=== PATIENT | male | born 1980 | race Caucasian/White ===

== ENCOUNTER 2021-06-23 07:38 | Outpatient (CLI) | payer BC, SELFPAY ==
--- NOTE | ~2021-06-23 | MR_ITS ---
EXAMINATION: MR knee RT wo con DATE: 06/23/2021 08:46 INDICATION: Surgical planning post injury TECHNIQUE: Magnetic resonance imaging (MRI) of the right knee was performed without intravenous contr ast. Sequences included coronal PD-weighted FSE, coronal PD-weighted FS FSE, sagittal T2-weighted FS E, sagittal PD-weighted FS FSE and axial PD weighted fat saturated FSE. COMPARISON: None. FINDINGS: Medial compartment: Medial meniscus is normal. Articular cartilage is normal. Lateral compartment: Partial thickness radial tear involving the inner half of the medial meniscal body. Articular cartila ge is normal. Patellofemoral compartment: Shallow chondral fissuring at the central aspect of the patellar apical ridge. Trochlear cartilage is normal. Ligaments and tendons: Anterior and posterior cruciate ligaments are normal. The fibular collateral ligament complex is norm al. Mild thickening of the proximal medial collateral ligament without significant immediately surrou nding edema likely scarring related to chronic sprain. Complete tear at the proximal aspect of the pa tellar tendon with 1.3 cm proximal retraction of the patella resulting in patella ting. There is a la rge heterotopic ossicle at the distal tear margin and moderate-sized enthesophyte at the proximal tea r margin. 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 Mild to mode rate tendinopathy along the medial side of the more distal patellar tendon. The visualized medial and lateral hamstring tendons as well as the iliotibial band are normal. Fluid: Minimal joint effusion at the suprapatellar pouch. There is prominent soft tissue edema in the immedi ate centimeters the patellar tendon tear. No loose osteochondral bodies identified. Osseous/other: Normal marrow signal. No fracture or pathologic marrow replacing process. IMPRESSION: 1. Patella ting with complete tear of proximal patellar tendon. 2. Partial thickness radial tear at the body of the lateral meniscus. 3. Moderate grade patellar chondromalacia with small region of shallow chondral fissuring at the gallo llar apical ridge. Reviewed, dictated and finalized at location A. IMPRESSION: 1. Patella ting with complete tear of proximal patellar tendon. 2. Partial thickness radial tear at the body of the lateral meniscus. 3. Moderate grade patellar chondromalacia with small region of shallow chondral fissuring at the patellar apical ridge.
== END 2021-06-23 07:39 | disposition home or self-care (01) ==
PROVIDERS: PCP Internal Medicine; Visit Provider Orthopaedic Surgery
DX: S83.006A Unspecified dislocation of unspecified patella, initial encounter (principal); S86.819A Strain of other muscle(s) and tendon(s) at lower leg level, unspecified leg, initial encounter; X58.XXXA Exposure to other specified factors, initial encounter
CPT/HCPCS: 73721

== ENCOUNTER 2021-06-24 01:01 | Day surgery (SDC) | payer BC, SELFPAY ==
[2021-06-21 14:37] VITALS: BMI 34.0
[2021-06-24] VITALS (9 sets, daily range): BP systolic 121–153; BP diastolic 57–79; PULSE 62–85; RESP 12–20; TEMP 36.8–36.9; O2SAT 94–100; BMI 35.2
--- NOTE | 2021-06-24 07:16 | WPDHPUPDATE1 ---
History and Physical Update Update Date/Time: 06/24/21 07:16 History and Physical has been reviewed, including an updated exam of the patient. There are NO changes in the patient's condition. Risks, benefits, and alternatives have been discussed and questions answered. Patient agrees to proceed with procedure.
--- NOTE | 2021-06-24 09:20 | WPDANESEPPF ---
Anes - Initial Pre Proc Eval Procedure: Operation Date: 06/24/21 12:30 Proposed Procedures p Right Patellar Tendon Reconstruction - Edgardo Crawford MD Date/Time: 06/24/21 09:20 Surgeon: Edgardo Crawford MD Pre Op Diagnosis: Rt Patellar Rupture Patient Data Age: 40 Gender: M Height: 1.75 m Weight: 108 kg Allergies Allergy/AdvReac Type Severity Reaction Status Date / Time No Known Allergies Allergy Verified 06/24/21 09:10 Home Medications Medication Instructions Recorded Confirmed Type hydrocodone 5 mg-acetaminophen 325 1 tablet PO Q6H PRN 06/20/21 06/24/21 History mg tablet meloxicam 15 mg tablet 15 mg PO DAILY 06/20/21 06/24/21 History oxycodone-acetaminophen 5 mg-325 1 tablet PO Q6H PRN #30 tablet 06/21/21 06/24/21 Rx mg tablet Patient hx anesthesia problems: none Family hx anesthesia problems: none Results Review: All pre-operative results and documents have been reviewed as part of the pre-operative evaluation. [facility] Surgical History Surgical History History of hand surgery Boxer's fracture 2000 and 2001 History of removal of cyst Cyst/tumor removed, 2011,Dr. 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 Informed Consent: The patient's anesthetic plan and its attendant risks and benefits were discussed with the patient/family/POA. Questions were solicited and answers provided to the satisfaction of the patient/family/POA.
[2021-06-24] MEDS: CELECOXIB 200 MG CAPSULE PO (09:29)
[2021-06-24] MEDS: ACETAMINOPHEN 500 MG TABLET 1000 MG PO (09:29)
[2021-06-24] MEDS: LACTATED RINGERS 1,000 ML 30 ML IV CONT ×2 (09:29→12:47)
--- NOTE | 2021-06-24 09:48 | WPDHPUPDATE1 ---
History and Physical Update Update Date/Time: 06/24/21 09:48 History and Physical has been reviewed, including an updated exam of the patient. There are NO changes in the patient's condition. We discussed the procedure in detail for a repair of Right Patella Tendon rupture. we discussed the risks and complications as well. Risks, benefits, and alternatives have been discussed and questions answered. Patient agrees to proceed with procedure.
--- NOTE | 2021-06-24 09:52 | WPDANESPNB ---
Anes - Peripheral Nerve Block Date/Time: 06/24/21 09:52 I have discussed with the patient/family/POA the placement of a peripheral nerve block for post-operative pain management, including associated risks, benefits, complications, and side effects. Alternative methods of post-operative analgesia were detailed. Questions were solicited and answers provided to the satisfaction of the patient/family/POA. Time-Out: A pre-procedural Time-Out was completed immediately before starting the procedure and confirmed: Patient Identification, Site, Procedure, Patient Position and the Availability of Requisite Equipment. Clinical Indications: Acute post-operative pain management requested by the operative surgeon. Nerve Block Insertion Note Anes-nerve block: adductor canal right Patient position: supine Skin prep: chlorhexidine Needle: 22 gauge, stimulating, insulated echogenic needle. Needle length: 80 mm Technique: ultrasound Technique comment: mid2mg [id number] Injectate: bupivacaine 0.5% with epi 5 mcg/ml (30ml no epi) and dexamethasone (mg) (4) Observations: tolerated well Complications: none Procedure start time:: 940 Procedure end time:: 947
[2021-06-24] MEDS: ceFAZolin 2 GM/D5W 50 ML 2 GM/50 ML BAG IVPB (09:54)
[2021-06-24] MEDS: BUPIVACAINE HCL 0.5% PF 30 ML VIAL INFILTRATE (10:21)
[2021-06-24] MEDS: fentaNYL CITRATE INJ (*CRX) 100 MCG/2 ML VIAL 25 MCG IV PUSH ×8 (13:00→13:21)
--- NOTE | 2021-06-24 13:20 | W.PM.PROC2 ---
Procedure Note - Detailed Date of Procedure 06/24/21 Pre-op Diagnosis Rt Patellar Tendon Rupture Post-op Diagnosis same Procedure Performed RIGHT PATELLA TENDON REPAIR Surgeon Edgardo Crawford MD Anesthesia general Description of Procedure PATIENT WAS TAKEN TO THE OPERATING ROOM IN STABLE CONDITION. THE RIGHT LOWER EXTREMITY WAS PREPPED AND DRAPED IN THE STERILE FASHION. INCISION WAS MADE OVER THE MIDLINE OF THE KNEE DOWN TO THE TIBIAL TUBERCLE. DISSECTION CONTINUED THROUGH THE SUBCUTANEOUS TISSUE UNTIL THE FASCIA WAS IDENTIFIED. THE PATELLA TENDON WAS IDENTIFIED AND THE RENT THROUGH THE PROXIMAL SUBSTANCE AND CONTINUED TO BOTH MEDIAL AND LATERAL RETINACULUM. THE KNEE JOINT WAS PARTIALLY VISUALIZED. THE TENDON EDGES WERE MACERATED AND THEN SOME TISSUE AND HEMATOMA WAS DEBRIDED TO GOOD TISSUE. TWO 5.5 ARTHREX CORK SCREW ANCHORS WERE PLACED AT EITHER EDGE OF THE DISTAL POLE OF THE PATELLA AND BOTH ANCHORS HAD GOOD BITES. ALL 4 SUTURES THEN WERE USED IN A KRAKOW STITCH, THEN WERE ANCHORED TO THE TIBIA IN A SWIVEL-LOCK ANCHOR. NUMBER 1 VICRYL THEN WAS USED TO APPROXIMATE THE TENDON EDGES AND THE MEDIAL AND LATERAL RETINACULUM. THE REPAIR WAS EXCELLENT. NEXT, 2 FIBER TAPE CORK SCREWS ANCHORS ON EITHER SIDE OF THE PATELLA MID SECTION WERE PLACED. THE FIBER TAPE WAS THEN ANCHORED TO 2 SWIVEL-LOCK ANCHORS JUST MEDIAL AND LATERAL TO THE TIBIAL TUBERCLE AND TENSIONED WITH THE KNEE AT 30 DEG OF FLEXION. THE TENSION WAS CHECKED AND IT WAS EXCELLENT. THE KNEE WAS TAKEN THROUGH GENTLE RANGE OF MOTION FROM 0 TO 30 DEG AND THE REPAIR WAS INTACT. THE WOUND WAS WASHED THOROUGHLY. THE BLEEDERS WERE CAUTERIZED AFTER THE TOURNIQUET WAS DEFLATED. THE [id number] LAYER WAS REPAIRED WITH 2-0 VICRYL AND THE 3-0 QUIL WAS USED TO APPROXIMATE THE SUB CUTICULAR LAYER . DERMABOND WAS USED TO SEAL THE SKIN AND THEN A STERILE DRESSING WAS APPLIED. PATIENT WAS EXTUBATED AND SENT TO RECOVERY ROOM. Estimated Blood Loss -50.0
[2021-06-24] MEDS: HYDROmorphone HCL INJ (*CRX) 1 MG/ML SYR IV PUSH ×2 (13:25→13:43)
[2021-06-24] MEDS: oxyCODONE HCL (*CRX) 5 MG TAB IR PO (14:14)
== END 2021-06-24 14:50 | disposition home or self-care (01) ==
PROVIDERS: PCP Internal Medicine; Visit Provider Orthopaedic Surgery
PROC: (CPT 27380; principal; 2021-06-24 12:30)
DX: S76.111A Strain of right quadriceps muscle, fascia and tendon, initial encounter (principal); G89.18 Other acute postprocedural pain; W18.39XA Other fall on same level, initial encounter; Y93.64 Activity, baseball; E66.9 Obesity, unspecified; Z68.35 Body mass index [BMI] 35.0-35.9, adult
CPT/HCPCS: 27664; 64447; A9270; C1713; J0690; J1100; J1170; J2250; J2405; J2704; J3010; J7120

== ENCOUNTER 2024-03-25 09:23 | Outpatient (CLI) | payer BC, SELFPAY ==
--- NOTE | 2024-03-30 14:13 | WPDHOMESLEEP ---
Sleep Study - Home Unattended Date of Study: 03/25/24 Ordering Provider: YVAN Macdonald-Berenice Interpreting Provider: Brook Mcleod MD [place] Study Type: Watch PAT Height: 1.75 m Weight: 95.254 kg Body Mass Index: 31.0 Neck Circumference (inches): 14.75 [place]: 6 Reason for Sleep Study Fatigue, waking during the night, excessive daytime sleepiness Sleep History Pilo Machado is a 43-year-old man with excessive daytime sleepiness. He never awakens from sleep feeling short of breath. He never wakes at night with heartburn, belching or coughing.??He occasionally snores, and occasionally snores loudly enough that others complain. He never has trouble sleeping when he has a cold. He never wakes up gasping for breath during the night. He never has breathing problems at night. He occasionally sweats excessively at night. He rarely notices his heart pounding or beating irregularly during the night. He rarely falls asleep during the day. He occasionally falls asleep involuntarily, never falls asleep while driving. He never experiences loss of muscle tone with strong emotion. He occasionally has daytime difficulty at work due to excessive sleepiness. He never feels paralyzed on waking or falling asleep. He never experiences vivid dreams upon waking or falling asleep. He never feels afraid of going to sleep. He never has nightmares. He occasionally recalls his dreams. He rarely has thoughts racing through his mind. He never feels sad or depressed. He occasionally feels anxiety. He occasional notices parts of his body jerk. He never kicks during the night. He never feels crawling or aching feelings in his legs. He never feels leg pain at night. He never never has morning jaw pain, never grinds his teeth at night. He never feels bothered by pain during the day, occasionally awakened by pain during the night. He frequently wakes up feeling stiff in the morning, and he occasionally wakes feeling sore or achy. He occasionally awakens with pain in his neck, spine, or joints. He takes antacids regularly. Normal bedtime is between 9:00 p.m. and 10:00 p.m., falling asleep within 10-20 minutes, waking 1-2 times at night. While awake, he goes to the bathroom and lets the dog out. Wake time is he is able to return to sleep within 10 minutes.. He typically gets his normal wake time is 4:30 a.m.. On weekends bedtime is between 9:00 p.m. and 11:00 p.m., wake time is between 6:00 a.m. and 7:00 a.m.. He reports getting on average 6-7 hours of sleep at night. He sometimes takes naps in the afternoon or evening. A short nap lasting 10-15 minutes is not refreshing. He is usually drowsy for 1 hour after waking. Habits:??Tobacco: Never smoker Caffeine: 1-2 daily Alcohol:none Recreational substances: none PMF Surgical History Surgical History H/O right knee surgery Patellar Tendon Reconstruction 06/24/21 History of hand surgery Boxer's fracture 2000 and 2001 History of removal of cyst Cyst/tumor removed, 2011,Dr. Villasenor History of vasectomy 2014, pt can't remember doctor Family History Family History Grandparent Cancer Mother Hypertension Father Hypertension Heart problem Cerebrovascular accident Social History Social History Social History: Caffeine- daily Smoking status: Unknown if ever smoked Alcohol intake: current Drinks per week: 6 Alcohol use details: or less Substance use: never Substance use type: does not use Lack of Transportation: No Lack of Food: Never True Current Housing: I Have Housing Concerned About Future Housing: No Difficulty Paying Gas/Electric Bills: No Difficulty Paying for Meds: No Currently Unemployed: No Education: High School Diploma/GED Difficulty w/ Childcare or Family Ca
[2024-03-30 14:35] VITALS: BMI 31.0
== END 2024-03-26 14:46 | disposition home or self-care (01) ==
LOC: ANHCSM 09:26
PROVIDERS: PCP Internal Medicine; Visit Provider Clinical Nurse Specialist
DX: G47.10 Hypersomnia, unspecified (principal); G47.33 Obstructive sleep apnea (adult) (pediatric)
CPT/HCPCS: 95800

== ENCOUNTER 2025-05-04 19:20 | Emergency (ER) | payer BC, SELFPAY ==
--- NOTE | ~2025-05-04 | XR_ITS ---
XR femur LT min 2V 05/04/2025 21:51 Indication: Left leg pain Procedure: 2 views left femur Comparison: No prior studies for comparison. Findings: No fracture, subluxation or dislocation. Mild osteoarthritis of the left knee. No focal soft tissue abnormality. No foreign body. Impression: 1: Mild osteoarthritis of the left knee. Reviewed, dictated and finalized at location O. Impression: 1: Mild osteoarthritis of the left knee.
--- OUTSIDE RECORDS SUMMARY | 2025-05-04 19:22 | XMS_ITS | Clinical Summary ---
Author Organization [facility] Address [address] [place] [address] Care Team Providers Care Research Engineer Name Role Phone Unavailable Primary Care Provider Unavailabl e Source Comments [facility],non-owned Affiliates and Associated Physician Practices is amultiple site organization consisting of ambulatory clinics and hospital sitesin [place], [place], [place] and [place]. This disclosure is being madepursuant to the Care Everywhere program and may not contain all information available regarding this patient. Last updated 18.[employer] [facility] Allergies No known active allergies Medications * Be aware that medications may not be up to date on this document. Alwaysverify current medications with the patient. predniSONE (DELTASONE) 20 MG tablet Take 3 a day x 3 days, then 2 a day x 3 days, then 1 a day x 5 days 20 tablet 03/27/2019 Active triamcinolone acetonide (KENALOG) 0.1 % cream Apply to affected area 2 times daily 30 g 1 03/27/2019 Active Social History Tobacco Use Types Packs/Day Years Used Date Smoking Tobacco: Never Assessed Sex and Gender Information Value Date Recorded Sex Assigned at Not on file Legal Sex Male 9:36 AM CDT Gender Identity Not on file Sexual Orientation Not on file Last Filed Vital Signs Vital Sign Reading Time Taken Comments Blood Pressure 126/80 03/27/2019 9:50 AM CDT Pulse 64 03/27/2019 9:50 AM CDT Temperature 36.5 C (97.7 F) 03/27/2019 9:50 AM CDT Respiratory Rate - - Oxygen Saturation - - Inhaled Oxygen Concentration - - Weight 99.8 kg (220 lb) 03/27/2019 9:50 AM CDT Height 175.3 cm (5' 9) 03/27/2019 9:50 AM CDT Body Mass Index 32.49 03/27/2019 9:50 AM CDT Plan of Treatment Health Maintenance Due Date Last Done Comments LIPID TESTING 1981 HIV SCREENING 1996 HEPATITIS C SCREENING 06/23/1999 DTAP/TDAP/TD VACCINES (1 - Tdap) 2000 HEPATITIS B VACCINE (1 of 3 - 19+ 3-dose series) 2000 HPV VACCINE (1 - 3-dose SCDM series) 2008 COVID-19 VACCINE (1 - 2023-2 5 season) 2024 DEPRESSION SCREENING 09/10/2024 INFLUENZA VACCINE (#1) 2025 ZOSTER VACCINE (1 of 2) 2031 HIB VACCINE Aged Out No longer eligi ble based on patient's age to complete this topic MENINGOCOCCAL (Group B) VACC INE SHARED DECISION-MAKING Aged Out No longer eligibl e based on patient's age to complete this topic MENINGOCOCCAL GROUPS A/C/Y/W VACCINE Aged Out No longer eligible b ased on patient's age to complete this topic PNEUMOCOCCAL VACCINE Aged Out No long er eligible based on patient's age to complete this topic Insurance [facility]
[2025-05-04 19:50] VITALS: BP 124/81; PULSE 81; RESP 20; TEMP 36.9; O2SAT 99
--- NOTE | 2025-05-04 21:45 | ED.LOWEXIN ---
HPI - Extremity Injury (Lower) General Chief Complaint: Extremity Injury, Lower Stated Complaint: left leg pain Time Seen by Provider: 05/04/25 20:41 Source: patient Mode of arrival: ambulatory (with crutches) Limitations: no limitations History of Present Illness HPI Narrative: This is a 44 year old male that presents to the ER for left lower extremity pain. Reports he was playing softball last night and felt a pop in his left posterior thigh. Reports pain and swelling to the area. Denies decreased range of motion or numbness. Related Data Allergies Allergy/AdvReac Type Severity Reaction Status Date / Time No Known Allergies Allergy Verified 05/04/25 19:57 Review of Systems Review of Systems: All systems reviewed & are unremarkable except as noted in HPI and below PMFSH Surgical History Surgical History H/O right knee surgery Patellar Tendon Reconstruction 06/24/21 History of hand surgery Boxer's fracture 2000 and 2001 History of removal of cyst Cyst/tumor removed, 2011,Dr. Villasenor History of vasectomy 2014, pt can't remember doctor Family History Family History Grandparent Cancer Mother Hypertension Father Hypertension Heart problem Cerebrovascular accident Social History Social History Social History: Caffeine- daily Smoking status: Unknown if ever smoked Alcohol intake: current Drinks per week: 6 Alcohol use details: or less Substance use: never Substance use type: does not use Lack of Transportation: No Lack of Food: Never True Current Housing: I Have Housing Concerned About Future Housing: No Difficulty Paying Gas/Electric Bills: No Difficulty Paying for Meds: No Currently Unemployed: No Education: High School Diploma/GED Difficulty w/ Childcare or Family Care: No Living arrangements: with family Occupation/Education: occupation 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 HEAD: Normocephalic, atraumatic. EYES: EOMI. EXTREMITIES: Normal range of motion. No edema or obvious deformity. Normal DP pulse. Normal sensation SKIN: Warm, dry, no rash. NEURO: No focal deficits. Alert and oriented x3. PSYCH: Normal mood and affect Course Vital Signs Vital signs: Vital Signs Temperature 98.4 F 05/04/25 19:50 Pulse Rate 81 05/04/25 19:50 Respiratory Rate 20 05/04/25 19:50 Blood Pressure 124/81 05/04/25 19:50 Pulse Oximetry 99 05/04/25 19:50 Oxygen Delivery Room Air 05/04/25 19:50 Temperature 98.4 F 05/04/25 19:50 Pulse Rate 69 05/04/25 23:45 Respiratory Rate 18 05/04/25 23:45 Blood Pressure 122/73 05/04/25 23:45 Pulse Oximetry 99 05/04/25 23:45 Oxygen Delivery Room Air 05/04/25 19:50 MDM - Extremity Injury (Lower) MDM Narrative Medical decision making narrative: Patient presents emergency department for left posterior thigh pain, reports feeling a pop while playing softball yesterday. He is neurovascularly intact. Left femur x-ray without acute osseous abnormalities. Patient placed in Maynor wrap. He has crutches. Given follow-up with Orthopedics. He was given warnings to return to the ER Differential Diagnosis Differential diagnosis: Likely other (Muscle strain, muscle spasm) Imaging Data My impression: Left femur x-ray: No acute osseous abnormality Critical Care Time Critical Care Time Critical Care Time: No Discharge Plan Discharge Clinical Impression: Left hamstring muscle strain Qualifiers: Encounter type: initial encounter Qualified Code(s): S76.312A - Strain of muscle, fascia and tendon of the posterior muscle group at thigh level, left thigh, initial encounter Patient Disposition: Home Condition: Stable Instructions: Muscle Strain (ED) Additional Instructions: Return to the ER if you experience fever, redness and swelling of your extremity, numbness or any other symptoms that are concerning to you Your x-ray today did not show any new bony abnormalities Wear MAYNOR wrap and use crutches. No weight on the affected leg until able to bear weight without pain. Ice and elevate extremity. Tylenol or Ibuprofen as needed for pain Follow up with orthopedics for further care. You have seen Dr. Crawford in the past, or Dr. Mcnulty is our electron beam photo mask maker tonight Patient Language: Citizen Of [place] Prescriptions: New ibuprofen 800 mg tablet 800 mg PO TID PRN (Reason: pain) Qty: 14 0RF No Action Wegovy 2.4 mg/0.75 mL pen injector 2.4 mg subcut WEEKLY Qty: 3 0RF Rx Instructions: NEEDS APPOINTMENT FOR FURTHER REFILLS Follow-up/Referrals: Isai Mcnulty MD [Physician, Orthopedics] Gregg Bravo DO [Primary Care Provider, Internal Medicine] Stand Alone Forms: Work/School Release IP
[2025-05-04] MEDS: KETOROLAC 30 MG/ML VIAL (*BKC) IM (21:54)
[2025-05-04 23:45] VITALS: BP 122/73; PULSE 69; RESP 18; O2SAT 99
== END 2025-05-04 23:46 | disposition home or self-care (01) ==
PROVIDERS: Emergency Provider Physician Assistant; PCP Internal Medicine
DX: S76.312A Strain of muscle, fascia and tendon of the posterior muscle group at thigh level, left thigh, initial encounter (principal); X58.XXXA Exposure to other specified factors, initial encounter; Y93.64 Activity, baseball
CPT/HCPCS: 73552; 96372; 99283; J1885